=== PATIENT | male | born 1960 | race Caucasian/White ===

== ENCOUNTER 2017-02-04 08:48 | Emergency (ER) | payer MEDICARE ==
--- NOTE | 2017-02-14 06:57 | ER ---
ADMIT: 02/04/2017 RM/LOC: ER [facility] MR#: [id number] [address] [address] AMANDASHANNA ADAIRJoann Pappas [address] [place] [address] Emergency Room Report SEX: M AGE: 57 : 1960 DATE: 02/04/2017 SUBJECTIVE: A 57-year-old male, patient of Dr. Hadley complaining of a head injury that he sustained last week at home. He is out of his pain medications, and he has been out of them since Thursday. He complains also of having blurry vision. His symptoms are little bit more complicated than that. He states that he has nausea and diarrhea. He stated to me that his medications were needed to be filled on Thursday, so he went to Dr. Hadley's office yesterday, and got pretty upset because he would not refill his OxyContin. Apparently, when he fell, he took more than he needed. His story is not very straight forward. He says he was unable to remember what he was doing at the time, so he obviously took a little bit more than he needed to. PAST MEDICAL HISTORY: Includes knee pain. He says he has bad knees, anxiety, chronic pains, skull fracture, TBI, hypertension, and hyperlipidemia. IMMUNIZATIONS: Up-to-date. MEDICATIONS: Include: 1. Atorvastatin. 2. Metoprolol. 3. Dilantin. 4. Xanax. 5. Ativan. 6. Meloxicam. ALLERGIES: CODEINE. PHYSICAL EXAMINATION: VITAL SIGNS: Blood pressure 160/89. This is a large male, heart rate 77 with respirations 16, temperature is 96, O2 sats 99%. GENERAL: On examination, he seems anxious, almost tearful. Unable to open his eyes completely. He points to the front and the back of his head, where he says he has a hematoma. I am unable to palpate a hematoma on his head. He also tells me that the way the injury happened, he was coming down some stairs. He is pretty tall and there was a bar in the center. He hit that bar, kind of rolled, he kind of did a turn around and hit the back of his head. I am still unable to really picture the mechanism of injury, but anyway he complains of neck pain upon palpation. There is no point tenderness. Axial compression is normal. No pain on neck. EYES: PERRLA. ENT: Normal inspection. NEUROLOGIC: Alert, but irritable. Cranial nerves II through XII are intact respiration. CHEST: Nontender. ABDOMEN: Nontender. BACK: Nontender. SKIN: Good color and turgor. EXTREMITIES: Well perfused. ADMIT: 02/04/2017 RM/LOC: [facility] MR#: [id number] [address] [place], [place] [id number] DANIEL PATEL [address] [place] [address] Emergency Room Report SEX: M AGE: 57 : 1960 Just when I had finished the physical examination, he requested for an emesis bag, because he said he was going to get sick, which he did not, but I did supply that emesis bag to him. I proceeded to contact Dr. Hadley, and he gave me a short version of what the gentleman had gone through at his office on the day of visit which was on 02/03/2017. Apparently, he got upset when Dr. Hadley wanted to do a urine drug test on him and did not receive any refill on his medication. The patient states that he has been taking narcotics for over 40 years, and he has never had as much pain as he has now, so I went ahead and did a CT scan of his head which was totally negative and a CT of his neck also negative. He mentioned that he has had fusion of his cervical spine. Radiology was unable to see that. He also told me that he had a metal plate behind his left eye. CT scan did not show anything so. CLINICAL IMPRESSION: At this time after visiting with the patient is contusion to scalp secondary to fall with a negative head CT, chronic back pain, and out of medications for chronic pain or out of his narcotics. I did give him a shot of Toradol or ketorolac and gave him some Zofran for home use and advised to follow up with his primary provider. He also added that he is disabled due to his multiple injuries and his TBI. Well, I told him I was not going to refill his narcotics nor I would give him any narcotics on his way out of the ER. The patient did not seem to be upset about it. CÉSAR Brown / Trey Evans MD / gerardo JOB #: [id number] CC: Trey Evans MD, Attending Physician Shon Hadley MD, Family Physician
== END 2017-02-04 10:55 | disposition home or self-care (01) ==
LOC: ER 08:48
DX: S00.03XA Contusion of scalp, initial encounter (principal); M54.9 Dorsalgia, unspecified; G89.29 Other chronic pain; I10 Essential (primary) hypertension; E78.5 Hyperlipidemia, unspecified; F41.9 Anxiety disorder, unspecified; W19.XXXA Unspecified fall, initial encounter; Y92.009 Unspecified place in unspecified non-institutional (private) residence as the place of occurrence of the external cause